=== PATIENT | female | born 1980 | race Caucasian/White ===

== ENCOUNTER 2023-05-13 13:51 | Outpatient (CLI) | payer OTHER, SELFPAY ==
--- NOTE | 2023-05-13 13:40 | MM_ITS ---
Final Report Patient: SREEKANTH FIGUEREDO Facility:?[facility] Patient ID:?[id number] Site Patient ID:?[id number]. Site :?1980 Study:?XRay Breast Bilateral 3D W/CAD-05/13/2023 4:28:10 PM Ordering Physician:Taina Final Report: BILATERAL DIGITAL TOMOSYNTHESIS SCREENING MAMMOGRAM WITH COMPUTER-AIDED DETECTION CLINICAL HISTORY: Routine screening exam. COMPARISON: None TECHNIQUE: Digital tomosynthesis mammogram in CC and MLO projections including computer- aided detection (CAD). Bilateral Eckland views. BREAST COMPOSITION: Heterogeneously dense FINDINGS: RIGHT Breast: Normal breast tissue. No masses or achritectural distortion. No suspicious calcifications or adenopathy. Implants intact. LEFT Breast: Normal breast tissue. No masses or achritectural distortion. No suspicious calcifications or adenopathy. Implants intact. IMPRESSION: No suspicious findings. RECOMMENDATIONS: Annual bilateral screening mammography. BI-RADS category 2. Benign. Dictated by Rubio Arriaza MD @ 05/15/2023 9:32:36 AM (Electronic Signature)
--- OUTSIDE RECORDS SUMMARY | 2023-05-13 14:10 | XMS_ITS | Encounter Summary ---
Author Name Unknown Organization [employer] Address [address] [place] [address] Care Team Providers Care Model And Dye Person Name Role Phone Austin Bill MD Primary Care Provider Maynor Cat MD Unavailable [phone] [facility] Encounter Details Date Type Department Care Team (Late st Contact Info) Description 12/17/2021 [facility] [address] [place] [id number] Maynor Cat MD [address] [place] [address] 100 [address] [place] [address] Urgency-frequency syndrome (Primary Dx) Social History Tobacco Use Types Packs/Day Years Used Date Smoking Tobacco: Never Smokeless Tobacco: Never Alcohol Use Standard Drinks/Week Comments Yes 0 (1 standard drink = 0.6 oz pur e alcohol) Occasionally PHQ-2 Answer Date Recorded PHQ-2 Score 0 11/25/2021 Sex and Gender Information Value Date Recorded Sex Assigned at Female 11/08/2020 11:42 AM CDT Gender Identity Female 11/08/2020 11:42 AM CDT Sexual Orientation Straight 11/08/2020 11 :42 AM CDT COVID-19 Exposure Response Date Recorded In the last 10 days, have gerardo acosta been in contact with someone who was confirmed or suspected to have Coronavirus/COVID-19? No / Unsure 11/25/2021 1:32 PM CDT documented as of this encounter Miscellaneous Notes * Telephone Encounter - Maynor Cat MD - 12/17/2021 8:11 PM CDT Please advise the patient that I sent a prescription for Vesicare 10 [facility] [place]. The patient expressed concerns about the high cost of Myrbetriq. There michael Boardman website [email or web address] but oftentimes is considerably less expensive and may [place] option for her to consider. I did discuss that with her at the time of her recent visit on 11/25/2021. He may want to discuss that with her again. I do not would like to proceed with the plan that I outlined in 11/25/2021. Please let me know if there is questions. Thank you for your help with thisnice patient * Telephone Encounter - Marylou Licona RN - 12/17/2021 10:41 AM CDT Please address the my chart message. Last ov 11/25/21. Pt was rx'd Myrbetriq. Fabiana Licona RN . documented in this encounter Plan of Treatment Not on file documented as of this encounter Visit Diagnoses Diagnosis Urgency-frequency syndrome- Primary Hypertonicity of bladder documented in this encounter Additional Health Concerns Assessment Noted Time PHQ-9 Depression Total Score: 0 11/26/19 1:50 PM CDT documented as of this encounter Care Teams Model And Dye Person Relationship Specialty Start Date End Date Austin Bill MD PCP - General Family Practice 01/18/18 01/26/22 Maynor Cat MD [address] [place] [address] [address] [place] [address] Assigned OBGYN Provider 11/30/21 [facility] [address] [place] [address] Assigned PCP 04/23/23 documented as of this encounter
--- OUTSIDE RECORDS SUMMARY | 2023-05-13 14:10 | XMS_ITS | Referral Summary ---
Author Name Unknown Organization [place] Address [address] [place] [address] Care Team Providers Care Medical Resident Name Role Phone Maynor Cat MD Unavailable [phone] [facility] Unavail[facility] e Allergies Active Allergy Reactions Criticality Noted Date Comments Ondansetron Anaphylaxis High 03/08/2011 Medications Medication Sig Dispensed Refills Start Date End Date Status minocycline (MINOCIN) 100 MG capsule 100 mg 0 10/17/2019 Active metroNIDAZOLE (METROCREAM) 0.75 % external cream 0 11/24/2019 Active LORazepam (ATIVAN) 0.5 MG tabletIndications: Panic attack TAKE 1 TABLET BY MOUTH EVERY 8 HOURS NEEDED FOR ANXIETY 15 tablet 0 08/01/2020 Active FLUoxetine (PROZAC) 20 MG capsuleIndications :Moderate episode of recurrent major depressive disorder (H),Anxiety TAKE 3 CAPSULES(60 MG) BY MOUTH DAILY 270 capsule 0 08/07/2021 Active rOPINIRole (REQUIP) 0.25 MG tabletIndications: Restless leg syndrome TAKE 1 TO 2 TABLETS(0.25 TO 0.5 MG) BY MOUTH AT BEDTIME 180 tablet 0 08/07/2021 Active traZODone (DESYREL) 50 MG tabletIndications: Moderate episode of recurrent major depressive disorder (H) TAKE 1 TABLET BY MOUTH EVERY NIGHT AT BEDTIME NEEDED 90 tablet 0 08/07/2021 Active mirabegron (MYRBETRIQ) 50 MG 24 hr tabletIndications: Urgency-frequency syndrome Take 1 tablet (50 mg) by mouth daily 60 tablet 1 11/25/2021 Active Additional Information Patient not taking.Reported on 12/24/2021 solifenacin (VESICARE) 10 MG tabletIndications: Urgency-frequency syndrome TAKE 1 TABLET(10 MG) BY MOUTH DAILY 45 tablet 0 03/03/2022 Active Active Problems Problem Noted Date Diagnosed Date Restless leg syndrome 08/14/2021 Urge incontinence of urine 10/21/2018 Urgency-frequency syndrome 10/21/2018 Nocturnal enuresis 10/21/2018 Moderate episode of recurrent major depressive d isorder 09/15/2016 Anxiety 09/15/2016 Resolved Problems Problem Noted Date Diagnosed Date Resolved Date premature rupture of membranes (PPROM) delivered, current hospitalization 07/27/2016 02/26/2017 Encounter for triage in patient 07/26/2016 09/15/2016 Indication for care in labor or delivery 07/26/2016 09/15/2016 Immunizations Name Administration Dates Next Due COVID-19 MONOVALENT 12+ (Pfizer) 03/11/2021,05/0 09/2020,07/13/2020 HEPA 12/04/2004 Influenza (IIV3) PF 03/17/2011 Influenza Vaccine >6 months,quad, PF 12/25/2020, 12/28/2017,02/12/2009 Influenza Vaccine, 6+MO IM ( QUADRIVALENT W/PRESERVATIVES) 04/14/2019,03/17/2016 Influenza,INJ,MDCK,PF,Quad >6mo(Flucelvax) 04/14 TDAP Vaccine (Adacel) 06/30/2016 Typhoid IM 12/04/2004 Social History Tobacco Use Types Packs/Day Years Used Date Smoking Tobacco: Never Smokeless Tobacco: Never Tobacco Cessation:Counseling Given: No Alcohol Use Standard Drinks/Week Comments Yes 0 (1 standard drink = 0.6 oz pur e alcohol) Occasionally PHQ-2 Answer Date Recorded PHQ-2 Score 0 11/25/2021 Adolescent Education Answer Date Record ed Getting School Help Needed Not on file 01/13 Sex and Gender Information Value Date Recorded Sex Assigned at Female 11/08/2020 11:42 AM CDT Gender Identity Female 11/08/2020 11:42 AM CDT Sexual Orientation Straight 11/08/2020 11 :42 AM CDT Last Filed Vital Signs Vital Sign Reading Time Taken Comments Blood Pressure 118/86 12/24/2021 1:36 PM CDT Pulse 69 04/21/2019 10:40 AM COMMERCIAL SHEET METAL FOREMAN Temperature 36.7 ??C (98 ??F) 04/21/2019 10:40 AM COMMERCIAL SHEET METAL FOREMAN Respiratory Rate 16 04/21/2019 10:40 AM COMMERCIAL SHEET METAL FOREMAN Oxygen Saturation 98% 04/21/2019 10:40 AM COMMERCIAL SHEET METAL FOREMAN Inhaled Oxygen Concentration - - Weight 69.4 kg (153 lb 1.6 oz) 12/24/2021 1:36 P M CDT Height 162.6 cm (5' 4) 04/21/2019 10:40 AM COMMERCIAL SHEET METAL FOREMAN Body Mass Index 26.28 04/21/2019 10:40 AM COMMERCIAL SHEET METAL FOREMAN Plan of Treatment Not on file Medical Devices Implanted Type Area Second Butler Device Identifier Shelf Expiration Date Model / Serial / Lot Lead Interstim Kit 3889-28 Implanted:Qty: 1 on 12/07/2018 by Maynor Cat MD at [facility] Leads Right: Sacrum [employer] 3057 / [id number] / Lead Interstim Kit 3889-28 Implanted:Qty: 1 on 12/17/2018 by Maynor Cat MD at [facility] Leads Left: Sacrum [employer] 11/09/2022 3889-28 / / [id number] Stimulator Neuro Inter-Stim Ii 3058 Implanted:Qty: 1 on 12/17/2018 by Maynor Cat MD at [facility] Neurology device Left: Sacrum [employer] 04/26/2020 3058 / [id number] H / Lead Implanted:Qty: 1 on 12/07/2018 by Maynor Cat MD at [facility] N/A: Sacrum 3057 / / Care Teams Medical Resident Relationship Specialty Start Date End Date Maynor Cat MD [address] [place] [address] [address] [place] [address] Assigned OBGYN Provider 11/30/21 [facility] [address] [place] [address] Assigned PCP 04/23/23
--- OUTSIDE RECORDS SUMMARY | 2023-05-13 14:10 | XMS_ITS | Encounter Summary ---
Author Name Unknown Organization [employer] Address [address] [place] [address] Care Team Providers Care Wood Web Weaving Machine Operator Name Role Phone Lydia Marcos MD Primary Care Provider + Austin Bill MD Primary Care Provider [phone] Austin Bill MD Unavailable [phone] Austin Bill MD Unavailable [phone] [place] [place] Unavailable Unavailable Maynor Cat MD Unavailable [phone] Maynor Cat MD Unavailable [phone] [facility] e Encounter Details Date Type Department Care Team (Latest Contact Info) Description 09/15/2016 Historic Results Social History Tobacco Use Types Packs/Day Years Used Date Smoking Tobacco: Never Smokeless Tobacco: Never Alcohol Use Standard Drinks/Week Comments No 0 (1 standard drink = 0.6 oz pur e alcohol) Sex and Gender Information Value Date Recorded Sex Assigned at Female 11/08/2020 11:42 AM CDT Gender Identity Female 11/08/2020 11:42 AM CDT Sexual Orientation Straight 11/08/2020 11 :42 AM CDT documented as of this encounter Plan of Treatment Not on file documented as of this encounter Visit Diagnoses Not on filedocumented in this encounter Additional Health Concerns Assessment Noted Time PHQ-9 Depression Total Score: 10 017 7:28 AM CDT documented as of this encounter Care Teams Wood Web Weaving Machine Operator Relationship Specialty Start Date End Date Lydia Marcos MD PCP - General visual merchandise manager 07/26/16 01/17/18 Austin Bill MD PCP - General Family Practice 01/18/18 01/26/22 [place] [address] [place] [address] PCP - Assigned PCP 08/29/16 06/01/18 [place] [address] [place] [address] Assigned PCP 08/29/16 12/13/21 [facility] Personal Advocate & Liaison (PAL) Family Practice 01/11/20 01/22/20 Maynor Cat MD [address] [facility] [address] [place] [address] Assigned OBGYN Provider 01/20/20 2 Maynor Cat MD [address] [facility] [address] [place] [address] Assigned OBGYN Provider 11/30/21 [facility] [address] [place] [address] Assigned PCP 04/23/23 documented as of this encounter
--- OUTSIDE RECORDS SUMMARY | 2023-05-13 14:10 | XMS_ITS | Encounter Summary ---
Author Name Unknown Organization [place] Address [address] [place] [address] Care Team Providers Care Men'S Basketball Coach Name Role Phone Austin Bill MD Primary Care Provider [phone] Austin Bill MD Unavailable [phone] Maynor Cat MD Unavailable [phone] Clinic - [facility] Unavail[facility] e Encounter Details Date Type Department Care Team (Late st Contact Info) Description 07/19/2021 [facility] [address] [place] [phone] Madison Harris, RASCHEL KNITTING MACHINE OPERATOR Social History Tobacco Use Types Packs/Day Years Used Date Smoking Tobacco: Never Smokeless Tobacco: Never Alcohol Use Standard Drinks/Week Comments Yes 0 (1 standard drink = 0.6 oz pur e alcohol) Occasionally PHQ-2 Answer Date Recorded PHQ-2 Score 0 08/01/2020 Sex and Gender Information Value Date Recorded [...] Noted Time PHQ-9 Depression Total Score: 0 08/02/19 21 1:51 PM CDT documented as of this encounter Care Teams Men'S Basketball Coach Relationship Specialty Start Date End Date Austin Bill MD PCP - General Family Practice 01/18/18 01/26/22 [place] [address] [place] [address] Assigned PCP 08/29/16 12/13/21 Maynor Cat MD [address] [facility] [address] [place] [address] Assigned OBGYN Provider 11/30/21 [facility] [address] [place] [address] Assigned PCP 04/23/23 documented as of this encounter
--- OUTSIDE RECORDS SUMMARY | 2023-05-13 14:10 | XMS_ITS | Encounter Summary ---
Author Name Unknown Organization [place] Address [facility] [place] [address] Care Team Providers Care Toll Collector Supervisor Name Role Phone Austin Bill MD Primary Care Provider [phone] Austin Bill MD Unavailable [phone] Maynor Cat MD Unavailable [phone] [facility] - [facility] Unavailabl e Encounter Details Date Type Department Care Team (Late st Contact Info) Description 08/06/2021 [facility] [id number] [place] [phone] Migdalia Jolley MA Social History Tobacco Use Types Packs/Day Years [...] Recorded In the last 10 days, have yo u been in contact with someone who was confirmed or suspected to have Coronavirus/COVID-19? No / Unsure 08/07/2021 10:25 AM CDT documented as of this encounter Plan of Treatment Not on file documented as of this encounter Visit Diagnoses Not on filedocumented in this encounter Additional Health Concerns Assessment Noted Time PHQ-9 Depression Total Score: 0 08/02/19 21 1:51 PM CDT documented as of this encounter Care Teams Toll Collector Supervisor Relationship Specialty Start Date End Date Austin Bill MD PCP - General Family Practice 01/18/18 01/26/22 [place] [address] [facility] [place] [address] Assigned PCP 08/29/16 12/13/21 Maynor Cat MD [address] [place] [address] [address] [place] [address] Assigned OBGYN Provider 11/30/21 [facility] [address] [place] [address] Assigned PCP 04/23/23 documented as of this encounter
--- OUTSIDE RECORDS SUMMARY | 2023-05-13 14:10 | XMS_ITS | Encounter Summary ---
Author Name Unknown Organization [place] Address [address] [place] [address] Care Team Providers Care Construction Tech Name Role Phone Austin Bill MD Primary Care Provider [phone] Austin Bill MD Unavailable [phone] [place] [place] Unavailable Unavailable Maynor Cat MD Unavailable [phone] Maynor Cat MD Unavailable [phone] [facility] Unavailabl e Encounter Details Date Type Department Care Team (Late st Contact Info) Description 11/29/2019 [facility] [address] [place] [phone] Belkis Vidales Social History Tobacco Use Types Packs/Day Years Used Date Smoking Tobacco: Never Smokeless Tobacco: Never Alcohol Use Standard Drinks/Week Comments Yes 0 (1 standard drink = 0.6 oz pur e alcohol) Occasionally PHQ-2 Answer Date Recorded PHQ-2 Score 0 03/17/2019 Sex and Gender Information Value Date Recorded Sex Assigned at Female 11/08/2020 11:42 AM CDT Gender Identity Female 11/08/2020 11:42 AM CDT Sexual Orientation Straight 11/08/2020 11 :42 AM CDT COVID-19 Exposure Response Date Recorded In the last month, have you been in contact with someone who was confirmed or suspected to have Coronavirus / COVID-19? No / Unsure 11/25/2019 8:44 AM CDT documented as of this encounter Plan of Treatment Not on file documented as of this encounter Visit Diagnoses Not on filedocumented in this encounter Additional Health Concerns Assessment Noted Time PHQ-9 Depression Total Score: 1 04/21/19 20 11:19 AM APPEALS ANALYST documented as of this encounter Care Teams Construction Tech Relationship Specialty Start Date End Date Austin Bill MD PCP - General Family Practice 01/18/18 01/26/22 [place] [address] [facility] [place] [address] Assigned PCP 08/29/16 12/13/21 [facility] Personal Advocate & Liaison (PAL) [facility] Practice 01/11/20 01/22/20 Maynor Cat MD 303 [facility] [address] [place] [address] Assigned OBGYN Provider 01/20/20 2 Maynor Cat MD [address] [facility] [address] [place] [address] Assigned OBGYN Provider 11/30/21 [facility] [address] [place] [address] Assigned PCP 04/23/23 documented as of this encounter
--- OUTSIDE RECORDS SUMMARY | 2023-05-13 14:10 | XMS_ITS | Encounter Summary ---
Author Name Unknown Organization [place] Address [facility] [place] [address] Care Team Providers Care Thread Dresser Name Role Phone Austin Bill MD Primary Care Provider [phone] Austin Bill MD Unavailable [phone] Maynor Cat MD Unavailable [phone] Maynor Cat MD Unavailable [phone] [facility] Unavailabl e Encounter Details Date Type Department Care Team (Late st Contact Info) Description 11/08/2020 [facility] Medical Advice [facility] [address] [place] [phone] [place] [address] [place], [place] [id number] Social History Tobacco Use Types Packs/Day Years [...] documented as of this encounter Care Teams Thread Dresser Relationship Specialty Start Date End Date Austin Bill MD PCP - General Family Practice 01/18/18 01/26/22 [place] [address] [place] [address] Assigned PCP 08/29/16 12/13/21 Maynor Cat MD [address] [facility] [address] [place] [address] Assigned OBGYN Provider 01/20/20 2 Maynor Cat MD [address] [facility] [address] [place] [address] Assigned OBGYN Provider 11/30/21 [facility] [address] [place] [address] Assigned PCP 04/23/23 documented as of this encounter
--- OUTSIDE RECORDS SUMMARY | 2023-05-13 14:10 | XMS_ITS | Encounter Summary ---
Author Name Unknown Organization [place] Address [address] [place] [address] Care Team Providers Care Drying Room Attendant Name Role Phone Austin Bill MD Primary Care Provider [phone] Austin Bill MD Unavailable [phone] [place] Unavailable Unavailable Maynor Cat MD Unavailable [phone] Maynor Cat MD Unavailable [phone] [facility] Unavailabl e Encounter Details Date Type Department Care Team (Late st Contact Info) Description 02/15/2019 [facility] [address] [place] [phone] [place] [address] [place], [place] [address] Social History Tobacco Use Types Packs/Day Years Used Date Smoking Tobacco: Never Smokeless Tobacco: Never Alcohol Use Standard Drinks/Week Comments Yes 0 (1 standard drink = 0.6 oz pur e alcohol) Occasionally Sex and Gender Information Value Date Recorded [...] Noted Time PHQ-9 Depression Total Score: 0 04/22/19 19 1:45 PM CUT OFF SAW OPERATOR PIPE BLANKS documented as of this encounter Care Teams Drying Room Attendant Relationship Specialty Start Date End Date Austin Bill MD PCP - General Family Practice 01/18/18 01/26/22 [place] [address] [place] [address] Assigned PCP 08/29/16 12/13/21 [place] [place] Personal Advocate & Liaison (PAL) Family Practice 01/11/20 01/22/20 Maynor Cat MD [address] [facility] [address] [place] [address] Assigned OBGYN Provider 01/20/20 2 Maynor Cat MD [address] [facility] [address] [place] [address] Assigned OBGYN Provider 11/30/21 [facility] [address] [place] [address] Assigned PCP 04/23/23 documented as of this encounter
--- OUTSIDE RECORDS SUMMARY | 2023-05-13 14:10 | XMS_ITS | Clinical Summary ---
Author Name Unknown Organization [place] Address [address] [place] [address] Care Team Providers Care Print Buyer Name Role Phone Maynor Cat MD Unavailable [phone] [facility] Unavailabl e Allergies Active Allergy Reactions Criticality [...] TDAP Vaccine (Adacel) 06/30/2016 Typhoid IM 12/04/2004 Family History Medical History Relation Comments Macular Degeneration Father Anxiety Disorder Mother Atrial fibrillation Mother Hypotension Mother Breast Cancer Paternal Grandmother Relation Status Comments Father Alive Mother Alive Paternal Grandmother Social History Tobacco Use Types Packs/Day Years Used Date Smoking Tobacco: Never Smokeless Tobacco: Never Tobacco Cessation:Counseling Given: No Alcohol Use Standard Drinks/Week Comments Yes 0 (1 standard drink = 0.6 oz pur e alcohol) Occasionally PHQ-2 Answer Date Recorded PHQ-2 Score 0 11/25/2021 Adolescent Education Answer Date Record ed Getting School Help Needed Not on file 10/17 /2023 Sex and Gender Information Value Date Recorded Sex Assigned at Female 11/08/2020 11:42 AM CDT Gender Identity Female 11/08/2020 11:42 AM CDT Sexual Orientation Straight 11/08/2020 11 :42 AM CDT Last Filed Vital Signs Vital Sign Reading Time Taken Comments Blood Pressure 118/86 12/24/2021 1:36 PM CDT Pulse 69 04/21/2019 10:40 AM COAT CUTTER Temperature 36.7 ??C (98 ??F) 04/21/2019 10:40 AM COAT CUTTER Respiratory Rate 16 04/21/2019 10:40 AM COAT CUTTER Oxygen Saturation 98% 04/21/2019 10:40 AM COAT CUTTER Inhaled Oxygen Concentration - - Weight 69.4 kg (153 lb 1.6 oz) 12/24/2021 1:36 P M CDT Height 162.6 cm (5' 4) 04/21/2019 10:40 AM COAT CUTTER Body Mass Index 26.28 04/21/2019 10:40 AM COAT CUTTER Plan of Treatment Health Maintenance Due Date Last Done Comments ADVANCE CARE PLANNING 1980 ANNUAL REVIEW OF HM ORDERS 1980 DEPRESSION ACTION PLAN 1980 GLUCOSE 1980 HEPATITIS B IMMUNIZATION (1 of 3 - 3-dose series) 1980 LIPID 2020 YEARLY PREVENTIVE VISIT 05/02/2020 05/02/2019 PAP 05/02/2022 05/02/2019, 05/2019, 05/02/2019, Additional history exists PHQ-9 05/27/2022 11/25/2021, 050 07/2020, 04/21/2019, Additional history exists COVID-19 Vaccine ( season) 2022 03/11/2021, 08/03/2020, 07/13/2020 INFLUENZA VACCINE (#1) 2022 , 04/14/2019, 04/14/2019, Additional history exists MAMMO SCREENING 12/31/2023 12/30/2021, 11/19/2020 DTAP/TDAP/TD IMMUNIZATION (2 - Td or Tdap) 06/30/2026 06/30/2016 HIV SCREENING Completed 01/29/2016, 08/30/2010 HEPATITIS C SCREENING Discontinued HPV IMMUNIZATION Aged Out No longer e ligible based on patient's age to complete this topic IPV IMMUNIZATION Aged Out No longer e ligible based on patient's age to complete this topic MENINGITIS IMMUNIZATION Aged Out No l onger eligible based on patient's age to complete this topic Pneumococcal Vaccine: Pediatrics (0 to 5 Years) and At-Risk Patients (6 to 64 Years) Aged Out No longer eligible based on patient's age to complete this topic RSV MONOCLONAL ANTIBODY Aged Out No l onger eligible based on patient's age to complete this topic Medical Devices Implanted Type Area Precision Lens Technician Device Identifier Shelf Expiration Date Model / Serial / Lot Lead Interstim Kit 3889-28 Implanted:Qty: 1 on 12/07/2018 by Maynor Cat MD at [facility] Leads Right: Sacrum [employer] 3057 / [id number] / Lead Interstim Kit [id number] Implanted:Qty: 1 on 12/17/2018 by Maynor Cat MD at [facility] Leads Left: Sacrum [employer] 11/09/2022 3889-28 / / [id number] Stimulator Neuro Inter-Stim Ii 3058 Implanted:Qty: 1 on 12/17/2018 by Maynor Cat MD at [facility] Neurology device Left: Sacrum [employer] 04/26/2020 3058 / [id number] / Lead Implanted:Qty: 1 on 12/07/2018 by Maynor Cat MD at [facility] N/A: Sacrum 3057 / / Care Teams Print Buyer Relationship Specialty Start Date End Date Maynor Cat MD [address] [place] [address] [address] [place] [address] Assigned OBGYN Provider 11/30/21 [facility] [address] [place] [address] Assigned PCP 04/23/23
--- OUTSIDE RECORDS SUMMARY | 2023-05-13 14:10 | XMS_ITS | Encounter Summary ---
Author Name Unknown Organization [place] Address [address] [place] [address] Care Team Providers Care Green Belt Name Role Phone Austin Bill MD Primary Care Provider [phone] Austin Bill MD Unavailable [phone] Maynor Cat MD Unavailable [phone] Clinic - [facility] Unavailabl e Encounter Details Date Type Department Care Team (Late st Contact Info) Description 11/07/2021 MyC Medical Advice [facility] [address] [place] [phone] Migdalia Jolley MA Social History Tobacco [...] documented as of this encounter Care Teams Green Belt Relationship Specialty Start Date End Date Austin Bill MD PCP - General Family Practice 01/18/18 01/26/22 [place] [address] [facility] [place] [address] Assigned PCP 08/29/16 12/13/21 Maynor Cat MD [address] [facility] [address] [place] [address] Assigned OBGYN Provider 11/30/21 [facility] [address] [place] [address] Assigned PCP 04/23/23 documented as of this encounter
--- OUTSIDE RECORDS SUMMARY | 2023-05-13 14:11 | XMS_ITS | Encounter Summary ---
Author Name Unknown Organization [place] Address [address] [place] [address] Care Team Providers Care Justice Court Judge Name Role Phone HemantLydia MD Primary Care Provider + Austin Bill MD Primary Care Provider [phone] Austin Bill MD Unavailable [phone] Austin Bill MD Unavailable [phone] Nba Woods Unavailable Unavailable Maynor Cat MD Unavailable [phone] Maynor Cat MD Unavailable [phone] Clinic - [facility] Unavailabl e Encounter Details Date Type Department Care Team (Late st Contact Info) Description 07/29/2016 [facility] [address] [place] [phone] Maynor Cat MD [address] [place] [address] [address] [place] [address] Social History Tobacco Use Types Packs/Day Years [...] Diagnoses Not on filedocumented in this encounter Care Teams Justice Court Judge Relationship Specialty Start Date End Date Lydia Marcos MD PCP - General supervisor dry paste 07/26/16 01/17/18 Austin Bill MD PCP - General Family Practice 01/18/18 01/26/22 [place] [address] [place] [address] PCP - Assigned PCP 08/29/16 06/01/18 [place] [address] [place] [address] Assigned PCP 08/29/16 12/13/21 Nba Woods Personal Advocate & Liaison (PAL) Family Practice 01/11/20 01/22/20 Maynor Cat MD [address] [place] [address] [address] [place] [address] Assigned OBGYN Provider 01/20/20 2 Maynor Cat MD 303 [facility] [address] [place] [address] Assigned OBGYN Provider 11/30/21 [facility] [address] [place] [address] Assigned PCP 04/23/23 documented as of this encounter
== END 2023-05-13 13:52 | disposition home or self-care (01) ==
LOC: MAMMO 13:53
PROVIDERS: PCP Family Medicine; Visit Provider Family Medicine
DX: Z12.31 Encounter for screening mammogram for malignant neoplasm of breast (principal); R92.2 Inconclusive mammogram
CPT/HCPCS: 77063; 77067

== ENCOUNTER 2024-03-29 16:53 | Emergency (ER) | payer OTHER, SELFPAY ==
--- OUTSIDE RECORDS SUMMARY | 2024-03-29 16:55 | XMS_ITS | Clinical Summary ---
Author Organization [facility] Address [place], [place] [address] Care Team Providers Care Sausage Wrapper Name Role Phone Shelbi Braun Primary Care Provider Allergies Active Allergy Reactions Criticality Noted Date Comments Ondansetron Throat Swelling/Closing High 12/11/2023 Medications traZODone (DESYREL) 50 mg tablet Take 1 Tablet (50 mg) by mouth at bedtime. 4 Active LORazepam (ATIVAN) 0.5 mg tab Take 1 Tablet (0.5 mg) by mouth every 6 hours if needed for Anxiety. 4 Active thyroid (DIRECTOR MARKETING Thyroid) 60 mg tablet Take 1 Tablet (60 mg) by mouth once daily. 4 Active vibegron (GEMTESA) 75 mg tabletIndicatio ns:OAB (overactive bladder) Take 1 Tablet (75 mg) by mouth once daily. 90 Tablet 1 4 Active fluvoxaMINE (LUVOX CR) 100 mg Extended-Releas e capsuleIndicati ons:Anxiety Take 1 Capsule (100 mg) by mouth once daily. 30 Capsule 1 4 Active fluvoxaMINE (LUVOX) 50 mg tabletIndicatio ns:Anxiety Take 1 Tablet (50 mg) by mouth once daily. 90 Tablet 1 4 03/02/20 24 Discontinu ed(*Medica tion adjustment ) Encounters Date Type Department Care Team Description 01/18/2024 1:00 PM CDT Office Visit [facility] [address] [place] [address] Shelbi Braun PA Medication Management (Fluoxamine - going well) 01/18/2024 Travel from Last 3 Months Family History Medical History Relation Name Comments Good Health Brother 1 Good Health Brother 2 Good Health Brother 3 Macular degeneration Father Atrial fibrillation Mother Good Health Sister 1 Good Health Sister 2 Relation Name Status Comments Brother 1 Alive Brother 2 Alive Brother 3 Alive Father Alive Mother Alive Sister 1 Alive Sister 2 Alive Social History Tobacco Use Types Packs/Day Years Used Date Smoking Tobacco: Former Cigarettes Tobacco Cessation:Counseling Given: Not Answered [facility] Utilities Answer Date Recorded Do you have trouble paying f or utilities (for example, heat, electricity, water, phone)? Yes 12/11/2023 PHQ-2 Answer Date Recorded PHQ-2 TOTAL SCORE 3 2024 Social Connections Answer Date Recorded Do you often feel lonely or isolated from those around you? 0 12/11/2023 Financial Resource Strain Answer Date R ecorded Difficulty of Paying Living Expenses 3 12/11/2023 Difficulty of Paying Living Expenses Not on file 12/11/2023 Food Insecurity Answer Date Recorded Do you worry your food will run out before you are able to buy more? 1 12/11/2023 Transportation Needs Answer Date Record ed Does lack of transportation keep you from medica l appointments? 1 12/11/2023 Does lack of transportation keep you from work, meetings or getting things that you need? 1 12/11/2023 Housing Stability Answer Date Recorded What is your housing situation today? 1 12/11/2023 Comments Unknown Sex and Gender Information Value Date Recorded Sex Assigned at Not on file Legal Sex Female 4:34 PM LABORATORY TECHNICIAN Gender Identity Not on file Sexual Orientation Not on file Obstetrics History Last Filed Vital Signs Vital Sign Reading Time Taken Comments Blood Pressure 95/60 01/18/2024 1:09 PM CDT Pulse 67 01/18/2024 1:09 PM CDT Temperature - - Respiratory Rate - - Oxygen Saturation - - Inhaled Oxygen Concentration - - Weight 64 kg (141 lb) 01/18/2024 1:09 PM CDT Height - - Body Mass Index - - Plan of Treatment Upcoming Encounters Date Type Department Care Team (Late st Contact Info) Description 04/11/2024 1:00 PM LABORATORY TECHNICIAN Ancillary Procedure [facility] [address] [place] [address] Health Maintenance Due Date Last Done Comments Tdap 02/28/1991 HIV for age 15-65 02/28/1995 BMI (ht and wt on same day) for age 18+ 02/28/1998 Hepatitis C screening for ag e 18-79 02/28/1998 Tetanus booster 2000 COVID-19 vaccine series ( season) 2023 03/11/2021, 08/03/2020, 07/13/2020 Influenza for age 9-49 11/29/2023 Pap test for age 21-65 05/02/2024 , 05/02/2019 Depression screening for age 12+ 04/11/2025 04/11/2024, 2024, 02/22/2024 Pneumococcal series for age 6-49 Aged Out No longer eligible b ased on patient's age to complete this topic Procedures Procedure Name Priority Date/Time Associated Diagnosis Comments PILL PACKER THIN PREP PAP SCREEN IMAGED Routine 05/02/2019 12:00 PM LABORATORY TECHNICIAN from Last 3 Months or Most Recently Relevant to Health Maintenance Results * PILL PACKER THIN PREP PAP SCREEN IMAGED (05/02/2019 12:00 PM LABORATORY TECHNICIAN) Case Report Gynecologic Cytology Report Case: [id number] Authorizing Provider: Kerri Luna MD Collected: 05/02/2019 1200 Ordering Location: [facility] Received: 05/03/2019 0926 First Screen: Cosme Agarwal Pathologist: Deb Rose DO Specimen: PILL PACKER ThinPrep Vial Screening, Cervical/Vaginal 05/12/2019 10:34 AM LABORATORY TECHNICIAN [facility] LABORAT[facility]-C ENTRAL LABORATORY INTERPRETATION/ RESULT NEGATIVE FOR INTRAEPITHELIAL LESION OR MALIGNANCY (NIL) (none) 05/12/2019 10:34 AM LABORATORY TECHNICIAN [facility] LABORATORY-C ENTRAL LABORATORY R NON-NEOPLASTIC FINDING(S) Reactive cellular changes associated with inflammation/repa ir 05/12/2019 10:34 AM LABORATORY TECHNICIAN [facility] LABORAT[facility]-C ENTRAL LABORATORY SPECIMEN ADEQUACY Satisfactory for evaluation Endocervical component present 05/12/2019 10:34 AM [facility] HPV REQUEST HPV and PAP 05/12/2019 10:34 AM [facility] Date of LMP 04/23/2019 05/12/2019 10:34 AM [facility] Additional Information 05/12/2019 10:34 AM [facility] Comment: Interpreted at [facility] - [address], [place] [address] Automated Review Successful 05/12/2019 10:34 AM [facility] Comment:Specimen processed s uccessfully by automated circulation analyst device, Apollo EndosurgeryPrep Imaging System, [employer] ANCILLARY TESTING PILL PACKER HPV Ordered, Please see separate report 05/12/2019 10:34 AM [facility] Note The pap test is a screening technique, not a diagnostic procedure. It is used primarily to screen for squamous cancers and precursor lesions. Published studies have shown that it is subject to both false negative and false positive results. The pap test should not be used as the sole means to diagnose or exclude pre-malignant and malignant lesions. 05/12/2019 10:34 AM [facility] Other (Cervical/Vagina l) 05/02/2019 12:00 PM LABORATORY TECHNICIAN 05/03/2019 9:26 AM LABORATORY TECHNICIAN Kerri Luna MD PATHOLOGY/CYTOLOGY Final Result [facility] [address] [place] [address], from Last 3 Months or Most Recently Relevant to Health Maintenance Insurance [facility] INDIVIDUAL AND FAMILY PLANS Care Teams Sausage Wrapper Relationship Specialty Start Date End Date Shelbi Braun PA [address] [place] [address] PCP - General Physician Oilseed Meat Presser 01/18/24
--- OUTSIDE RECORDS SUMMARY | 2024-03-29 16:55 | XMS_ITS | Clinical Summary ---
Author Organization [place] Address [address] [place] [address] Care Team Providers Care Supervisor Bridges And Buildings Name Role Phone Unavailable Primary Care Provider Unavailabl e Allergies Active Allergy Reactions Criticality Noted Date Comments Ondansetron Anaphylaxis High 03/08/2011 Medications minocycline (MINOCIN) 100 MG capsule 100 mg 0 Active metroNIDAZOLE (METROCREAM) 0.75 % external cream 0 Active LORazepam (ATIVAN) 0.5 MG tabletIndicatio ns:Panic attack TAKE 1 TABLET BY MOUTH EVERY 8 HOURS NEEDED FOR ANXIETY 15 tablet 1 Active FLUoxetine (PROZAC) 20 MG capsuleIndicati ons:Moderate episode of recurrent major depressive disorder (H),Anxiety TAKE 3 CAPSULES(60 MG) BY MOUTH DAILY 270 capsule 2 Active rOPINIRole (REQUIP) 0.25 MG tabletIndicatio ns:Restless leg syndrome TAKE 1 TO 2 TABLETS(0.25 TO 0.5 MG) BY MOUTH AT BEDTIME 180 tablet 2 Active traZODone (DESYREL) 50 MG tabletIndicatio ns:Moderate episode of recurrent major depressive disorder (H) TAKE 1 TABLET BY MOUTH EVERY NIGHT AT BEDTIME NEEDED 90 tablet 2 Active mirabegron (MYRBETRIQ) 50 MG 24 hr tabletIndicatio ns:Urgency-freq uency syndrome Take 1 tablet (50 mg) by mouth daily 60 tablet 1 2 Active Additional Information Patient not taking.Reported on 12/24/2021 solifenacin (VESICARE) 10 MG tabletIndicatio ns:Urgency-freq uency syndrome TAKE 1 TABLET(10 MG) BY MOUTH DAILY 45 tablet 2 Active Active Problems Problem Noted Date Diagnosed [...] School Help Needed Not on file 01/13 Comments No Sex and Gender Information Value Date Recorded Sex Assigned at Female 11/08/2020 11:42 AM CDT Legal Sex Female 4:45 AM DIALYSIS CHIEF EQUIPMENT TECHNICIAN Gender Identity Female 11/08/2020 11:42 AM CDT Sexual Orientation Straight 11/08/2020 11 :42 AM CDT 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 on file Not on file Not on file Last Filed Vital Signs Vital Sign Reading Time Taken Comments Blood Pressure 118/86 12/24/2021 1:36 PM CDT Pulse 69 04/21/2019 10:40 AM DIALYSIS CHIEF EQUIPMENT TECHNICIAN Temperature 36.7 C (98 F) 04/21/2019 10:40 AM DIALYSIS CHIEF EQUIPMENT TECHNICIAN Respiratory Rate 16 04/21/2019 10:40 AM DIALYSIS CHIEF EQUIPMENT TECHNICIAN Oxygen Saturation 98% 04/21/2019 10:40 AM DIALYSIS CHIEF EQUIPMENT TECHNICIAN Inhaled Oxygen Concentration - - Weight 69.4 kg (153 lb 1.6 oz) 12/24/2021 1:36 P M CDT Height 162.6 cm (5' 4) 04/21/2019 10:40 AM DIALYSIS CHIEF EQUIPMENT TECHNICIAN Body Mass Index 26.28 04/21/2019 10:40 AM DIALYSIS CHIEF EQUIPMENT TECHNICIAN Plan of Treatment Health Maintenance Due Date Last Done Comments ADVANCE CARE PLANNING 1980 ANNUAL REVIEW OF HM ORDERS 1980 DEPRESSION ACTION PLAN 1980 GLUCOSE 1980 HEPATITIS B IMMUNIZATION (1 of 3 - 19+ 3-dose series) 02/28/1999 LIPID 2020 YEARLY PREVENTIVE VISIT 05/02/2020 05/02/2019 PAP 05/02/2022 05/02/2019, 0205/2019, 05/02/2019, Additional history exists PHQ-9 05/27/2022 11/25/2021, 05/0 07/2020, 04/21/2019, Additional history exists COVID-19 Vaccine ( season) 2023 03/11/2021, 08/03/2020, 07/13/2020 INFLUENZA VACCINE (#1) 2023 , 04/14/2019, 04/14/2019, Additional history exists MAMMO SCREENING 12/31/2023 12/30/2021, 11/19/2020 DTAP/TDAP/TD IMMUNIZATION (2 - Td or Tdap) 06/30/2026 06/30/2016 RSV VACCINE (1 - 1-dose 75+ series) 02/28/2055 HIV SCREENING Completed 01/29/2016, 08/30/2010 HEPATITIS C SCREENING Discontinued HPV IMMUNIZATION Aged Out No longer e ligible based on patient's age to complete this topic MENINGITIS IMMUNIZATION Aged Out No l onger eligible based on patient's age to complete this topic Pneumococcal Vaccine: Pediatrics (0 to 5 Years) and At-Risk Patients (6 to 49 Years) Aged Out No longer eligible based on patient's age to complete this topic RSV MONOCLONAL ANTIBODY Aged Out No l onger eligible based on patient's age to complete this topic Medical Devices Implanted Type Area Chiropractor Sole Practitioner Device Identifier Shelf Expiration Date Model / Serial / Lot Lead Interstim Kit 3889-28 Implanted:Qty: 1 on 12/07/2018 by Maynor Cat MD at [facility] Leads Right: Sacrum [employer] 3057 / [id number] / Lead Interstim Kit 3889-28 Implanted:Qty: 1 on 12/17/2018 by Maynor Cat MD at [facility] Leads Left: Sacrum [employer] 11/09/2022 3889-28 / / [id number] Stimulator Neuro Inter-Stim Ii 3058 Implanted:Qty: 1 on 12/17/2018 by Maynor Cat MD at [facility] Neurology device Left: Sacrum [employer] 04/26/2020 3058 / [id number] / Lead Implanted:Qty: 1 on 12/07/2018 by Maynor Cat MD at [facility] N/A: Sacrum 3057 / / Procedures Procedure Name Priority Date/Time Associated Diagnosis Comments MA SCREENING WITH IMPLANTS BILATERAL W/ JADEN Routine 12/30/2021 1:45 PM CDT Encounter for screening mammogram for breast cancer HIV ANTIGEN ANTIBODY COMBO Routine 01/29/2016 PAP SMEAR - HIM PATIENT REPORTED Routine 11/05/2015 PHQ-9 DEPRESSION SCREENING ORDER Routine 09/18/2015 from Last 3 Months or Most Recently Relevant to Health Maintenance Results * MA Screen with Implants Bilateral w/Jaden (12/30/2021 1:45 PM CDT) Anatomical Region Laterality Modality Breast Bilateral Mammography Impressions 01/01/2022 2:59 PM CDT IMPRESSION: ACR BI-RADS Category 1: Negative RECOMMENDED FOLLOW-UP: Annual routine screening mammogram The results and recommendations of this examination will be communicated to the patient. Narrative 01/01/2022 2:59 PM CDT BILATERAL FULL FIELD DIGITAL SCREENING MAMMOGRAM WITH TOMOSYNTHESIS Performed on: 12/30/21 Compared to: 11/19/2020 Technique: This study was evaluated with the assistance of Computer-Aided Detection. Breast Tomosynthesis was used in interpretation. Findings: The breasts are heterogeneously dense, which may obscure small masses. There is no radiographic evidence of malignancy. us Maynor Cat MD IMG MAMMOGRAPHY ORDERABLES Kathie l Result * HIV Antigen Antibody Combo (01/29/2016) HIV Antigen Antibody Combo Negative Blood specimen (specimen) us Patient Reported LAB - BLOOD ORDERABLES Final Re sult * PAP Smear - HIM Patient Reported (11/05/2015) PAP Smear - HIM Patient Reported Negative EXTERNAL LAB 11/05/2015 Narrative EXTERNAL LAB - 11/05/2015 Please abstract the following data from this visit with this patient into the appropriate field in Psychiatric: Pap smear done on this date: 11/05/15 (approximately), by this group: [facility] , results were normal. us Patient Reported LABORATORY Final Result EXTERNAL LAB External Lab * PHQ-9 DEPRESSION SCREENING ORDER (09/18/2015) PHQ9 SCORE 5 Narrative Yasmeen Rubi - 09/18/2015 [facility] CLINICAL NOTES 12/12/2013-03/17/2016 us Provider Outside OTHER Final Result from Last 3 Months or Most Recently Relevant to Health Maintenance Insurance [facility] INDIVIDUAL FAMILY PLANS [facility] INDIVIDUAL FAMILY PLANS
--- OUTSIDE RECORDS SUMMARY | 2024-03-29 16:56 | XMS_ITS | Encounter Summary ---
Author Organization [place] Address [address] [place] [address] Care Team Providers Care Land Development Project Manager Name Role Phone Austin Bill MD Primary Care Provider [phone] Austin Bill MD Unavailable [phone] Maynor Cat MD Unavailable [phone] [facility] Unavailabl e Encounter Details Date Type Department Care Team (Late st Contact Info) Description 07/19/2021 [facility] Medical Advice [facility] [address] [place] [phone] Madison Harris, RAZOR GRINDER Social History Tobacco Use Types Packs/Day Years Used Date Smoking Tobacco: Never Smokeless Tobacco: Never Alcohol Use Standard Drinks/Week Comments Yes 0 (1 standard drink = 0.6 oz pur e alcohol) Occasionally PHQ-2 Answer Date Recorded PHQ-2 Score 0 08/01/2020 Comments No Sex and Gender Information Value Date Recorded Sex Assigned at Female 11/08/2020 11:42 AM CDT Legal Sex Female 4:45 AM OUTDOOR ADVENTURE GUIDES Gender Identity Female 11/08/2020 11:42 AM CDT Sexual Orientation Straight 11/08/2020 11 :42 AM CDT 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 on file Not on file Not on file documented as of this encounter Plan of Treatment Not on file documented as of this encounter Visit Diagnoses Not on filedocumented in this encounter Additional Health Concerns Assessment Noted Time PHQ-9 Depression Total Score: 0 08/02/19 21 1:51 PM CDT documented as of this encounter Care Teams Land Development Project Manager Relationship Specialty Start Date End Date Austin Bill MD PCP - General Family Practice 01/18/18 01/26/22 [place] [address] [facility] [place] [address] Assigned PCP 08/29/16 12/13/21 Maynor Cat MD 303 [facility] [address] [place] [address] Assigned OBGYN Provider 11/30/21 [facility] [address] [place] [address] Assigned PCP 04/23/23 09/19/23 documented as of this encounter
--- OUTSIDE RECORDS SUMMARY | 2024-03-29 16:56 | XMS_ITS | Encounter Summary ---
Author Organization [place] Address [address] [place] [address]. [place] [address] Care Team Providers Care Paper Machine Operator Name Role Phone Austin Bill MD Primary Care Provider [phone] Austin Bill MD Unavailable [phone] Maynor Cat MD Unavailable [phone] Maynor Cat MD Unavailable [phone] [facility] Unavailabl e Encounter Details Date Type Department Care Team (Late st Contact Info) Description 11/08/2020 MyC Medical Advice [facility] [address] [place] [phone] [place] [address] [place], [place] [phone] Social History Tobacco Use Types Packs/Day Years Used Date Smoking Tobacco: Never Smokeless Tobacco: Never Alcohol Use Standard Drinks/Week Comments Yes 0 (1 standard drink = 0.6 oz pur e alcohol) Occasionally PHQ-2 Answer Date Recorded PHQ-2 Score 0 08/01/2020 Comments No Sex and Gender Information Value Date Recorded Sex Assigned at Female 11/08/2020 11:42 AM CDT Legal Sex Female 4:45 AM MEDIA RELATIONS COORDINATOR Gender Identity Female 11/08/2020 11:42 AM CDT [...] documented as of this encounter Care Teams Paper Machine Operator Relationship Specialty Start Date End Date Austin Bill MD PCP - General Family Practice 01/18/18 01/26/22 [place] [address] [facility] [place] [address] Assigned PCP 08/29/16 12/13/21 Maynor Cat MD 303 [facility] [address] [place] [address] Assigned OBGYN Provider 01/20/20 2 Maynor Cat MD [address] [facility] [address] [place] [address] Assigned OBGYN Provider 11/30/21 [facility] [address] [place] [address] Assigned PCP 04/23/23 09/19/23 documented as of this encounter
--- OUTSIDE RECORDS SUMMARY | 2024-03-29 16:56 | XMS_ITS | Encounter Summary ---
Author Organization [place] Address [address] [place] [address] Care Team Providers Care Windsmith Name Role Phone Austin Bill MD Primary Care Provider [phone] Austin Bill MD Unavailable [phone] Nba Woods Unavailable Unavailable Maynor Cat MD Unavailable [phone] Maynor Cat MD Unavailable [phone] [facility] Unavailabl e Encounter Details Date Type Department Care Team (Late st Contact Info) Description 11/29/2019 [facility] Medical Advice [facility] [address] [place] [phone] Belkis Vidales Social History Tobacco Use Types Packs/Day Years Used Date Smoking Tobacco: Never Smokeless Tobacco: Never Alcohol Use Standard Drinks/Week Comments Yes 0 (1 standard drink = 0.6 oz pur e alcohol) Occasionally PHQ-2 Answer Date Recorded PHQ-2 Score 0 03/17/2019 Comments No Sex and Gender Information Value Date Recorded Sex Assigned at Female 11/08/2020 11:42 AM CDT Legal Sex Female 4:45 AM BUILDING MAINTENANCE SUPERINTENDENT Gender Identity Female 11/08/2020 11:42 AM CDT Sexual Orientation Straight 11/08/2020 11 :42 AM CDT 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 on file Not on file Not on file COVID-19 Exposure Response Date Recorded In the [...] Total Score: 1 04/21/19 20 11:19 AM BUILDING MAINTENANCE SUPERINTENDENT documented as of this encounter Care Teams Windsmith Relationship Specialty Start Date End Date Austin Bill MD PCP - General Family Practice 01/18/18 01/26/22 [place] [address] [facility] [place] [address] Assigned PCP 08/29/16 12/13/21 Nba Woods Personal Advocate & Liaison (PAL) Family Practice 01/11/20 01/22/20 Maynor Cat MD 303 [facility] [address] [place] [address] Assigned OBGYN Provider 01/20/20 2 Maynor Cat MD 303 [facility] [address] [place] [address] Assigned OBGYN Provider 11/30/21 [facility] [address] [place] [address] Assigned PCP 04/23/23 09/19/23 documented as of this encounter
--- OUTSIDE RECORDS SUMMARY | 2024-03-29 16:56 | XMS_ITS | Encounter Summary ---
Author Organization [facility] Address [address] [place] [address] Care Team Providers Care Brick Molder Hand Name Role Phone Austin Bill MD Primary Care Provider [phone] Austin Bill MD Unavailable [phone] Maynor Cat MD Unavailable [phone] [facility] Unavailabl e Encounter Details Date Type Department Care Team (Late st Contact Info) Description 08/06/2021 [facility] Medical Advice [facility] [id number] [place] [phone] Migdalia Jolley MA Social History Tobacco [...] AM CDT Legal Sex Female 4:45 AM PORTABLE PINCH RIVETER Gender Identity Female 11/08/2020 11:42 AM CDT [...] documented as of this encounter Care Teams Brick Molder Hand Relationship Specialty Start Date End Date Austin Bill MD PCP - General Family Practice 01/18/18 01/26/22 [place] [address] [facility] [place] [address] Assigned PCP 08/29/16 12/13/21 Maynor Cat MD 303 [facility] 100 [address] 160 [place] [address] Assigned OBGYN Provider 11/30/21 [facility] [address] [place] [address] Assigned PCP 04/23/23 09/19/23 documented as of this encounter
--- OUTSIDE RECORDS SUMMARY | 2024-03-29 16:56 | XMS_ITS | Encounter Summary ---
Author Organization [place] Address [address] [place] [address] Care Team Providers Care Filter Assembler Name Role Phone Austin Bill MD Primary Care Provider Austin Bill MD Unavailable [phone] [place] [place] Unavailable Unavailable Maynor Cat MD Unavailable [phone] Maynor Cat MD Unavailable [phone] [facility] Unavailabl e Encounter Details Date Type Department Care Team (Late st Contact Info) Description 02/15/2019 [facility] Medical Advice [facility] [address] [place] [phone] [place] [address] [place], [place] [id number] Social History Tobacco Use Types Packs/Day Years Used Date Smoking Tobacco: Never Smokeless Tobacco: Never Alcohol Use Standard Drinks/Week Comments Yes 0 (1 standard drink = 0.6 oz pur e alcohol) Occasionally Comments No Sex and Gender Information Value Date Recorded Sex Assigned at Female 11/08/2020 11:42 AM CDT Legal Sex Female 4:45 AM COLLEGE ADVISOR Gender Identity Female 11/08/2020 11:42 AM CDT [...] Total Score: 0 04/22/19 19 1:45 PM COLLEGE ADVISOR documented as of this encounter Care Teams Filter Assembler Relationship Specialty Start Date End Date Austin Bill MD PCP - General Family Practice 01/18/18 01/26/22 [place] [address] [place] [address] Assigned PCP 08/29/16 12/13/21 [facility] Personal Advocate & Liaison (PAL) Family Practice 01/11/20 01/22/20 Maynor Cat MD 303 [facility] [address] [place] [address] Assigned OBGYN Provider 01/20/20 2 Maynor Cat MD 303 [facility] [address] [place] [address] Assigned OBGYN Provider 11/30/21 [facility] [address] [place] [address] Assigned PCP 04/23/23 09/19/23 documented as of this encounter
--- OUTSIDE RECORDS SUMMARY | 2024-03-29 16:56 | XMS_ITS | Encounter Summary ---
Author Organization [place] Address [address] [place] [address] Care Team Providers Care Rcp Name Role Phone Austin Bill MD Primary Care Provider [phone] Austin Bill MD Unavailable [phone] Maynor Cat MD Unavailable [phone] [place] [facility] Unavailabl e Encounter Details Date Type Department Care Team (Late st Contact Info) Description 11/07/2021 [facility] Medical Advice [facility] [address] [place] [phone] Migdalia Jolley MA Social History Tobacco [...] AM CDT Legal 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
--- OUTSIDE RECORDS SUMMARY | 2024-03-29 16:56 | XMS_ITS | Encounter Summary ---
Author Organization [place] Address [address] [place] [address] Care Team Providers Care Rod Buster Helper Name Role Phone Austin Bill MD Primary Care Provider Maynor Cat MD Unavailable [phone] [facility] Encounter Details Date Type Department Care Team (Late st Contact Info) Description 12/17/2021 [facility] [address] [place] [address] Maynor Cat MD 303 [facility] [address] [place] [address] Urgency-frequency syndrome (Primary Dx) Social History Tobacco Use Types Packs/Day Years Used Date Smoking Tobacco: Never Smokeless Tobacco: Never Alcohol Use Standard Drinks/Week Comments Yes 0 (1 standard drink = 0.6 oz pur e alcohol) Occasionally PHQ-2 Answer Date Recorded PHQ-2 Score 0 11/25/2021 Comments No Sex and Gender Information Value Date Recorded Sex Assigned at Female 11/08/2020 11:42 AM CDT 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 The patient expressed concerns about the high cost of Myrbetriq. There michael Archer website www[employer]ashups but oftentimes is considerably less expensive and [...] documented as of this encounter Care Teams Rod Buster Helper Relationship Specialty Start Date End Date Austin Bill MD PCP - General Family Practice 10/22/18 10/30/22 Maynor Cat MD 303 [facility] [address] [place] [address] Assigned OBGYN Provider 11/30/21 [facility] [address] [place] [address] Assigned PCP 04/23/23 09/19/23 documented as of this encounter
--- OUTSIDE RECORDS SUMMARY | 2024-03-29 16:56 | XMS_ITS | Encounter Summary ---
Author Organization [place] Address [address] [place] [address] Care Team Providers Care Drill Press Operator Helper Name Role Phone Lydia Marcos MD Primary Care Provider + Austin Bill MD Primary Care Provider [phone] Austin Bill MD Unavailable [phone] Austin Bill MD Unavailable [phone] [place] Unavailable Unavailable Maynor Cat MD Unavailable [phone] Maynor Cat MD Unavailable [phone] [facility] Unavailabl e Encounter Details Date Type Department Care Team (Late st Contact Info) Description 07/29/2016 [facility] [address] [place] [address] Maynor Cat MD [address] [place] [address] 100 [address] 160 [place], [place] [id number] Social History Tobacco Use Types Packs/Day Years Used Date Smoking Tobacco: Never Smokeless Tobacco: Never Alcohol Use Standard Drinks/Week Comments Yes 0 (1 standard drink = 0.6 oz pur e alcohol) Occasionally Comments No Sex and Gender Information Value Date Recorded Sex Assigned at Female 11/08/2020 11:42 AM CDT Legal Sex Female 4:45 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 CLEANER Gender Identity Female 11/08/2020 11:42 AM CDT Sexual Orientation Straight 11/08/2020 11 :42 AM CDT 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 on file Not on file Not on file documented as of this encounter Plan of Treatment Not on file documented as of this encounter Visit Diagnoses Not on filedocumented in this encounter Care Teams Drill Press Operator Helper Relationship Specialty Start Date End Date Lydia Marcos MD PCP - General phlebotomy program coordinator 07/26/16 01/17/18 Austin Bill MD PCP - General Family Practice 01/18/18 01/26/22 [place] [address] [place] [address] PCP - Assigned PCP 08/29/16 06/01/18 [place] [address] [place] [address] Assigned PCP 08/29/16 12/13/21 [facility] Personal Advocate & Liaison (PAL) Family Practice 01/11/20 01/22/20 Maynor Cat MD 303 [facility] [address] [place], [place] [address] Assigned OBGYN Provider 01/20/20 2 Maynor Cat MD 303 [facility] [address] [place], [place] [address] Assigned OBGYN Provider 11/30/21 [facility] [address] [place] [address] Assigned PCP 04/23/23 09/19/23 documented as of this encounter
--- OUTSIDE RECORDS SUMMARY | 2024-03-29 16:56 | XMS_ITS | Referral Summary ---
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 on file Not on file Not on file Last Filed Vital Signs Vital Sign Reading Time Taken Comments Blood Pressure 118/86 12/24/2021 1:36 PM CDT Pulse 69 04/21/2019 10:40 AM PHOTO RETOUCHER Temperature 36.7 C (98 F) 04/21/2019 10:40 AM PHOTO RETOUCHER Respiratory Rate 16 04/21/2019 10:40 AM PHOTO RETOUCHER Oxygen Saturation 98% 04/21/2019 10:40 AM PHOTO RETOUCHER Inhaled Oxygen Concentration - - Weight 69.4 kg (153 lb 1.6 oz) 12/24/2021 1:36 P M CDT Height 162.6 cm (5' 4) 04/21/2019 10:40 AM PHOTO RETOUCHER Body Mass Index 26.28 04/21/2019 10:40 AM PHOTO RETOUCHER Plan of Treatment Not on file Medical Devices Implanted Type Area Television Maintenance Man Device Identifier Shelf Expiration Date Model / Serial / Lot Lead Interstim Kit 3889-28 Implanted:Qty: 1 on 12/07/2018 by Maynor Cat MD at [facility] Leads Right: Sacrum [employer] 3057 / 3057 / Lead Interstim Kit 3889-28 Implanted:Qty: 1 on 12/17/2018 by Maynor Cat MD at [facility] Leads Left: Sacrum [employer] 11/09/2022 3889-28 / / [id number] Stimulator Neuro Inter-Stim Ii 3058 Implanted:Qty: 1 on 12/17/2018 by Maynor Cat MD at [facility] Neu[facility] device Left: Sacrum [employer] 04/26/2020 3058 / [id number] / Lead Implanted:Qty: 1 on 12/07/2018 by Maynor Cat MD at [facility] N/A: Sacrum 3057 / / Procedures Procedure [...] There is no radiographic evidence of malignancy. Maynor Cat MD IMG MAMMOGRAPHY ORDERABLES Kathie l Result * HIV Antigen Antibody Combo (01/29/2016) HIV Antigen Antibody Combo Negative Blood specimen (specimen) Patient Reported LAB - BLOOD ORDERABLES Final Re sult * PAP Smear - HIM Patient Reported (11/05/2015) PAP Smear - HIM Patient Reported Negative EXTERNAL LAB 11/05/2015 Narrative EXTERNAL LAB - 11/05/2015 Please abstract the following data from this visit with this patient into the appropriate field in [facility]: Pap smear done on this date: 11/05/15 (approximately), by this group: [facility] field , results were normal. Patient Reported LABORATORY Final Result EXTERNAL LAB External Lab * PHQ-9 DEPRESSION SCREENING ORDER (09/18/2015) PHQ9 SCORE 5 Narrative Yasmeen Rubi - 09/18/2015 [facility] CLINICAL NOTES 12/12/2013-03/17/2016 us Provider Outside OTHER Final Result from Last 3 Months or Most Recently Relevant to Health Maintenance Insurance [facility] [employer] [facility] [employer]
--- OUTSIDE RECORDS SUMMARY | 2024-03-29 16:56 | XMS_ITS | Encounter Summary ---
Author Organization [facility] Address [address] [place] [address] Care Team Providers Care Clay Thrower Name Role Phone Lydia Marcos MD Primary Care Provider + Austin Bill MD Primary Care Provider [phone] Austin Bill MD Unavailable [phone] Austin Bill MD Unavailable [phone] [place] Unavailable Unavailable Maynor Cat MD Unavailable [phone] Maynor Cat MD Unavailable [phone] [facility] Unavailabl e Encounter Details Date Type Department Care Team (Latest Contact Info) Description 09/15/2016 Historic Results Social History Tobacco Use Types Packs/Day Years Used Date Smoking Tobacco: Never Smokeless Tobacco: Never Alcohol Use Standard Drinks/Week Comments No 0 (1 standard drink = 0.6 oz pur e alcohol) Comments No Sex and Gender Information Value Date Recorded Sex Assigned at Female 11/08/2020 11:42 AM CDT Legal Sex Female 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 Gender Identity Female 11/08/2020 11:42 AM CDT Sexual Orientation Straight 11/08/2020 11 :42 AM CDT documented as of this encounter Plan of Treatment Not on file documented as of this encounter Visit Diagnoses Not on filedocumented in this encounter Additional Health Concerns Assessment Noted Time PHQ-9 Depression Total Score: 10 017 7:28 AM CDT documented as of this encounter Care Teams Clay Thrower Relationship Specialty Start Date End Date Lydia Marcos MD PCP - General social media specialist 07/26/16 01/17/18 Austin Bill MD PCP - General Family Practice 01/18/18 01/26/22 [place] [address] [place] [address] PCP - Assigned PCP 08/29/16 06/01/18 [place] [address] [place] [address] Assigned PCP 08/29/16 12/13/21 [facility] [place] Personal Advocate & Liaison (PAL) Family Practice 01/11/20 01/22/20 Maynor Cat MD 303 [facility] [address] 160 [place] [address] Assigned OBGYN Provider 01/20/20 2 Maynor Cat MD 303 [facility] [address] [place] [address] Assigned OBGYN Provider 11/30/21 [facility] [address] [place] [address] Assigned PCP 04/23/23 09/19/23 documented as of this encounter
[2024-03-29 17:26] VITALS: BP 120/76; PULSE 7; RESP 18; TEMP 37.3; O2SAT 98; BMI 23.7
--- NOTE | 2024-03-29 17:36 | CRLHL7_ITS ---
For Patients: As a result of the Cures Act, medical imaging exams and procedure reports are released immediately into your electronic medical record. You may view this report before your referring provider. If you have questions, please contact your health care provider. Indication: FELL ON ARM WHILE ICE SKATING, CANT MOVE ARM. Technique: Left humerus, 2 views. Comparison: None. Findings: Bones: Probably mildly comminuted, nondisplaced greater tubercle fracture. No definite extension to the articular surface.. Joint spaces: Glenohumeral and AC joint are unremarkable.. Soft tissues: Soft tissue swelling surrounding the fracture site.. Impression: Nondisplaced greater tubercle fracture. Dictated by Dariela Catherine MD @ 03/29/2024 7:43:27 PM (Electronically Signed)
--- NOTE | 2024-03-29 18:41 | ED.UPPEXIN ---
HPI - Extremity Injury (Upper) General Chief Complaint: Extremity Pain/Injury, Upper Stated Complaint: fell ise skating, may have broken shoulder Time Seen by Provider: 03/29/24 18:10 History of Present Illness HPI narrative: This 44-year-old female comes in with an injury to her left upper arm. She was ice skating and went over some rough ice that had refrozen because of some car tracks at left a rut. She tripped over this and fell on to the upper portion of her left arm. She did not hit her head or have loss of consciousness. She felt a crack when this occurred and has pain in her arm in this area. She has worsening pain when attempting to lift her arm. Related Data Home Medications ?Medication ?Instructions ?Recorded ?Confirmed fluvoxamine 100 mg 100 mg PO DAILY 03/29/24 03/29/24 capsule,extended release 24 hr fluvoxamine 50 mg tablet 50 mg PO QPM 03/29/24 03/29/24 thyroid (pork) 60 mg tablet (LABORATORY TECHNOLOGIST 60 mg PO QAM 03/29/24 03/29/24 Thyroid) Previous Rx's ?Medication ?Instructions ?Recorded doxycycline hyclate 100 mg capsule 100 mg PO BID #60 caps 01/22/23 ketoconazole 2 % topical cream 1 applic topical QDAY #60 grams 01/22/23 lorazepam 0.5 mg tablet 0.5 - 1 mg (1 - 2 x 0.5 mg) PO 11/10/23 QDAY PRN anxiety #10 tabs fluoxetine 20 mg capsule 40 mg (2 x 20 mg) PO DAILY #180 12/21/23 caps trazodone 50 mg tablet 50 mg PO .Bedtime as needed PRN 12/21/23 insomnia #90 tabs Allergies Allergy/AdvReac Type Severity Reaction Status Date / Time ondansetron Allergy Severe Shortness Verified 01/22/23 12:19 of breath, hives Review of Systems Status of ROS: Reports: 10 or more systems reviewed and unremarkable except as noted in History and below Narrative: Constitutional: No fevers, no weight gain or loss. Eyes: No discharge. No vision changes. HENT: No congestion, no sore throat, no ear pain. Cardiovascular: No chest pain, no palpitations. Respiratory: No shortness of breath, no wheezes, no cough. Gastrointestinal: No abdominal pain, no vomiting, no diarrhea. Genitourinary: No dysuria, no hematuria. Musculoskeletal: Left upper arm injury as described above. Skin: No rashes, no pruritis. Neurological: No dizziness, weakness, sensory change, speech change. Endo/Heme/Allergies: No bruising or bleeding. No polydipsia. Pysch: no suicidality, no anxiety, no insomnia. All other systems reviewed and are negative. [facility] Medical History (Updated 03/29/24 @ 18:45 by Moustapha Luong MD) Perioral dermatitis ?L71.0 - Perioral dermatitis (ICD-10) Urge incontinence ?N39.41 - Urge incontinence (ICD-10) History of temporomandibular joint disorder ?Z87.39 - Personal history of other diseases of the musculoskeletal system and connective tissue (ICD-10) Depression ?F32.A - Depression, unspecified (ICD-10) Chronic insomnia ?F51.04 - Psychophysiologic insomnia (ICD-10) Anxiety ?F41.9 - Anxiety disorder, unspecified (ICD-10) Surgical History (Updated 12/18/22 @ 09:10 by Deisy Mary MD) Sacral nerve stimulator present (12/07/18) ?Z96.82 - Presence of neurostimulator (ICD-10) History of tonsillectomy (1996) ?Z90.89 - Acquired absence of other organs (ICD-10) History of colposcopy (2005) ?Z98.890 - Other specified postprocedural states (ICD-10) History of breast augmentation (2017) ?Z98.82 - Breast implant status (ICD-10) History of abdominoplasty (2018) ?Z98.890 - Other specified postprocedural states (ICD-10) Family History (Updated 12/18/22 @ 08:51 by Deisy Mary MD) Mother Anxiety disorder Atrial fibrillation Paternal Grandmother Breast cancer, Onset Age: 50 Colon cancer, Onset Age: 70 Father Macular degeneration Maternal Grandfather Stroke, Onset Age: 65 Social History (Updated 12/18/22 @ 11:37 by Татьяна [place] ~ CTA) 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: , 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, [id number] mom,, 4 boys Nonsmoker Social drinker, 3/week, no rec drugs Exercises 3 times a week 60-90 minutes cardio and weights What is your current living situation?: I presently have a place to live Problems where you live: no known problems In the past 12 months, utilities in danger of being shut off: no In past 12 months, lack of transportation kept you from medical appts, meetings, work, or getting things needed for daily living: no In the past 12 mos, have been you worried that your food would run out before you had money to buy more?: never true In the past 12 mos, the food you bought just didn't last and you didn't have money to buy more?: never true Smoking Status: Never smoker How often does anyone, including family, friends and others, physically hurt you: never How often does anyone, including family, friends and others, insult or talk down to you: never How often does anyone, including family, friends and others, threaten you with harm: never How often does anyone, including family, friends and others, scream or curse at you: never Exam Narrative: Exam Narrative: Constitutional: Well-developed, well-nourished, no acute distress. HEENT: Normocephalic, atraumatic. Neck: Normal range of motion. Nontender. Supple. Heart: Intact distal pulses. Lungs: No chest discomfort. No wheezes, rhonchi, or rales. Abdomen: Nontender. Back: Normal range of motion. Extremities: Tenderness overlying the lateral aspect of the left proximal humerus. No sign of deformity. Decreased range of motion due to pain. Skin: Intact. No rash. Warm. No erythema or pallor. Neurologic: No altered sensation. No weakness. Alert and oriented. Psychiatric: No suicidality. No anxiety or depression. No insomnia. Nursing notes and vitals signs are reviewed. Const: Vital Signs, click to edit/add: Vital Signs - 24 hr 03/29/24 17:26 Temperature 99.2 F Pulse Rate [Pulse Oximeter] 7 L Respiratory Rate 18 Blood Pressure [Ri ght Upper Arm] 120/76 Pulse Oximetry 98 Oxygen Delivery Me thod Room Air Course Vital Signs Vital signs: Initial Vital Signs Temperature 99.2 F 03/29/24 17:26 Temperature Source Temporal Artery Scan 03/29/24 17:26 Pulse Rate 7 L 03/29/24 17:26 Respiratory Rate 18 12/31/24 17:26 Blood Pressure 120/76 03/29/24 17:26 Blood Pressure Mean 90 03/29/24 17:26 Blood Pressure Position Sitting 03/29/24 17:26 Pulse Oximetry 98 03/29/24 17:26 Oxygen Delivery Method Room Air 03/29/24 17:26 Vital Signs Temperature 99.2 F 03/29/24 17:26 Pulse Rate 7 L 03/29/24 17:26 Respiratory Rate 18 03/29/24 17:26 Blood Pressure 120/76 03/29/24 17:26 Pulse Oximetry 98 03/29/24 17:26 Oxygen Delivery Method Room Air 03/29/24 17:26 Temperature 99.2 F 03/29/24 17:26 Pulse Rate 7 L 03/29/24 17:26 Respiratory Rate 18 03/29/24 17:26 Blood Pressure 120/76 03/29/24 17:26 Pulse Oximetry 98 03/29/24 17:26 Oxygen Delivery Method Room Air 03/29/24 17:26 MDM - Extremity Injury (Upper) MDM Narrative Medical decision making narrative: This patient comes in with an injury to her left proximal humerus. X-ray images by my review show a nondisplaced fracture of this area. Radiology report is pending. The patient received a sling and prescription for some Instymed tablets of [place] and additional tablets from her preferred pharmacy. I advised her to follow-up with orthopedic clinic or her primary physician. Discharge Plan Discharge Clinical Impression: Fracture, humerus Patient Disposition: Home w/ Parent or Adult Condition: Stable Additional Instructions: Wear sling and use pain medicines as needed and directed. Follow up with orthopedic clinic or primary physician for ongoing management. Prescriptions: No Action doxycycline hyclate 100 mg capsule 100 mg PO BID Qty: 60 0RF ketoconazole 2 % cream 1 applic topical QDAY Qty: 60 0RF Rx Instructions: Apply every morning. fluvoxamine 50 mg tablet 50 mg PO QPM fluvoxamine 100 mg capsule,extended release 24hr 100 mg PO DAILY thyroid (pork) [LABORATORY TECHNOLOGIST Thyroid] 60 mg tablet 60 mg PO QAM lorazepam 0.5 mg tablet 0.5 - 1 mg PO QDAY PRN (Reason: anxiety) Qty: 10 0RF fluoxetine 20 mg capsule 40 mg PO DAILY Qty: 180 0RF trazodone 50 mg tablet 50 mg PO .Bedtime as needed PRN (Reason: insomnia) Qty: 90 0RF Rx Instructions: 1 tablets as needed for insomnia Follow Up/Referrals: Provider,Not a Local [Primary Care Provider] - Stand Alone Forms: [employer] Info Instructions
--- OUTSIDE RECORDS SUMMARY | 2024-03-29 18:50 | XMS_ITS | Clinical Summary ---
Author Organization [facility] Address [place], [place] [address] Care Team Providers Care Shotblaster Name Role Phone Shelbi Braun Primary Care Provider Allergies Active Allergy Reactions Criticality Noted Date Comments Ondansetron Throat Swelling/Closing High 12/11/2023 Medications traZODone (DESYREL) 50 mg tablet Take 1 Tablet (50 mg) by mouth at bedtime. 4 Active LORazepam (ATIVAN) 0.5 mg tab Take 1 Tablet (0.5 mg) by mouth every 6 hours if needed for Anxiety. 4 Active thyroid (INBOUND CALL CENTER REPRESENTATIVE Thyroid) 60 mg tablet Take 1 Tablet [...] Description 01/18/2024 1:00 PM CDT Office Visit [facility] [address] [place] [address] Shelbi Braun PA Medication Management (Fluoxamine - [...] Former Cigarettes Tobacco Cessation:Counseling Given: Not Answered [facility] Utilities Answer Date Recorded Do you [...] on file Legal Sex Female 4:34 PM STUDIO DESIGNER Gender Identity Not on file Sexual Orientation [...] st Contact Info) Description 04/11/2024 1:00 PM STUDIO DESIGNER Ancillary Procedure [facility] [address] [place] [address] Health Maintenance Due Date Last Done Comments [...] Procedure Name Priority Date/Time Associated Diagnosis Comments GOLF BALL INSPECTOR THIN PREP PAP SCREEN IMAGED Routine 05/02/2019 12:00 PM STUDIO DESIGNER from Last 3 Months or Most Recently Relevant to Health Maintenance Results * GOLF BALL INSPECTOR THIN PREP PAP SCREEN IMAGED (05/02/2019 12:00 PM STUDIO DESIGNER) Case Report Gynecologic Cytology Report Case: [id number] Authorizing Provider: Kerri Luna MD Collected: 05/02/2019 1200 Ordering Location: [facility] Received: 05/03/2019 0926 First Screen: Cosme Agarwal Pathologist: Deb Rose DO Specimen: GOLF BALL INSPECTOR ThinPrep Vial Screening, Cervical/Vaginal 05/12/2019 10:34 AM STUDIO DESIGNER [employer] LABORATORY-C ENTRAL LABORATORY INTERPRETATION/ RESULT NEGATIVE FOR INTRAEPITHELIAL LESION OR MALIGNANCY (NIL) (none) 05/12/2019 10:34 AM STUDIO DESIGNER [facility] LABORAT[facility]-C ENTRAL LABORATORY R NON-NEOPLASTIC FINDING(S) Reactive cellular changes associated with inflammation/repa ir 05/12/2019 10:34 AM STUDIO DESIGNER [facility] LABORAT[facility]-C ENTRAL LABORATORY SPECIMEN ADEQUACY Satisfactory for evaluation Endocervical component present 05/12/2019 10:34 AM [facility] HPV REQUEST HPV and PAP 05/12/2019 10:34 AM [facility] Date of LMP 04/23/2019 05/12/2019 10:34 AM [facility] Additional Information 05/12/2019 10:34 AM [facility] Comment: Interpreted at [facility] - [address], [place] [address] Automated Review Successful 05/12/2019 10:34 AM [facility] Comment:Specimen processed s uccessfully by automated auto emissions technician device, [employer] Imaging System, [employer] ANCILLARY TESTING GOLF BALL INSPECTOR HPV Ordered, Please see separate report 05/12/2019 10:34 AM [facility] Note The pap test is a screening technique, not a diagnostic procedure. It is used primarily to screen for squamous cancers and precursor lesions. Published studies have shown that it is subject to both false negative and false positive results. The pap test should not be used as the sole means to diagnose or exclude pre-malignant and malignant lesions. 05/12/2019 10:34 AM [facility] Other (Cervical/Vagina l) 05/02/2019 12:00 PM STUDIO DESIGNER 05/03/2019 9:26 AM STUDIO DESIGNER Kerri Luna MD PATHOLOGY/CYTOLOGY Final Result [facility] [address] [place] [address], from Last 3 Months or Most Recently Relevant to Health Maintenance Insurance [facility] IN[facility] FAMILY PLANS Care Teams Shotblaster Relationship Specialty Start Date End Date Shelbi Braun PA [address] [place] [address] PCP - General Physician Fine Dining Server 01/18/24
--- OUTSIDE RECORDS SUMMARY | 2024-03-29 18:50 | XMS_ITS | Referral Summary ---
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 on file Not on file Not on file Last Filed Vital Signs Vital Sign Reading Time Taken Comments Blood Pressure 118/86 12/24/2021 1:36 PM CDT Pulse 69 04/21/2019 10:40 AM BENEFITS CONSULTANT Temperature 36.7 C (98 F) 04/21/2019 10:40 AM BENEFITS CONSULTANT Respiratory Rate 16 04/21/2019 10:40 AM BENEFITS CONSULTANT Oxygen Saturation 98% 04/21/2019 10:40 AM BENEFITS CONSULTANT Inhaled Oxygen Concentration - - Weight 69.4 kg (153 lb 1.6 oz) 12/24/2021 1:36 P M CDT Height 162.6 cm (5' 4) 04/21/2019 10:40 AM BENEFITS CONSULTANT Body Mass Index 26.28 04/21/2019 10:40 AM BENEFITS CONSULTANT Plan of Treatment Not on file Medical Devices Implanted Type Area Pediatric Speech Language Pathologist Device Identifier Shelf Expiration Date Model / Serial / Lot Lead Interstim Kit 3889-28 Implanted:Qty: 1 on 12/07/2018 by Maynor Cat MD at [facility] Leads Right: Sacrum [employer] 3057 / 3057 / Lead Interstim Kit 3889-28 Implanted:Qty: 1 on 12/17/2018 by Maynor Cat MD at [facility] Leads Left: Sacrum [employer] 11/09/2022 3889-28 / / [id number] Stimulator Neuro Inter-Stim Ii 3058 Implanted:Qty: 1 on 12/17/2018 by Maynor Cat MD at [facility] Neurology device Left: Sacrum [employer] 04/26/2020 3058 / [id number] / Lead Implanted:Qty: 1 on 12/07/2018 by Maynor Cat MD at [facility] N/A: Sacrum 3057 / / Procedures Procedure [...] this patient into the appropriate field in [facility]: Pap smear done on this date: 11/05/15 (approximately), by this group: [facility] field , results were normal. Patient Reported LABORATORY Final Result EXTERNAL LAB External Lab * PHQ-9 DEPRESSION SCREENING ORDER (09/18/2015) PHQ9 SCORE 5 Narrative Yasmeen Rubi - 09/18/2015 [facility] CLINICAL NOTES 12/12/2013-03/17/2016 us Provider Outside OTHER Final Result from Last 3 Months or Most Recently Relevant to Health Maintenance Insurance [employer]ILY [employer]
--- OUTSIDE RECORDS SUMMARY | 2024-03-29 18:50 | XMS_ITS | Encounter Summary ---
Author Organization [place] Address [address] [place] [address] Care Team Providers Care Hat Trimmer Name Role Phone Austin Bill MD Primary Care Provider [phone] Austin Bill MD Unavailable [phone] Maynor Cat MD Unavailable [phone] [facility] Unavailabl e Encounter Details Date Type Department Care Team (Late st Contact Info) Description 08/06/2021 [facility] Medical Advice [facility] [address] [place] [phone] Migdalia Jolley MA Social History Tobacco [...] AM CDT Legal Sex Female 4:45 AM RABBIT BREEDER Gender Identity Female 11/08/2020 11:42 AM CDT [...] documented as of this encounter Care Teams Hat Trimmer Relationship Specialty Start Date End Date Austin Bill MD PCP - General Family Practice 01/18/18 01/26/22 [place] [address] [facility] [place] [address] Assigned PCP 08/29/16 12/13/21 Maynor Cat MD 303 [facility] [address] [place] [address] Assigned OBGYN Provider 11/30/21 [facility] [address] [place] [address] Assigned PCP 04/23/23 09/19/23 documented as of this encounter
--- OUTSIDE RECORDS SUMMARY | 2024-03-29 18:50 | XMS_ITS | Encounter Summary ---
Author Organization [place] Address [address] [place] [address] Care Team Providers Care Studio Camera Operator Name Role Phone Austin Bill MD Primary Care Provider Austin Bill MD Unavailable [phone] Nba Woods Unavailable Unavailable Maynor Cat MD Unavailable [phone] Maynor Cat MD Unavailable [phone] [facility] Unavailabl e Encounter Details Date Type Department Care Team (Late st Contact Info) Description 02/15/2019 [facility] [place] [facility] [address] [place] [phone] [place] [address] [place], [place] [id number] Social History Tobacco Use Types Packs/Day Years Used Date Smoking Tobacco: Never Smokeless Tobacco: Never Alcohol Use Standard Drinks/Week Comments Yes 0 (1 standard drink = 0.6 oz pur e alcohol) Occasionally Comments No Sex and Gender Information Value Date Recorded Sex Assigned at Female 11/08/2020 11:42 AM CDT Legal Sex Female 4:45 AM VICE PRESIDENT OF TALENT ACQUISITION Gender Identity Female 11/08/2020 11:42 AM CDT [...] Total Score: 0 04/22/19 19 1:45 PM VICE PRESIDENT OF TALENT ACQUISITION documented as of this encounter Care Teams Studio Camera Operator Relationship Specialty Start Date End Date Austin Bill MD PCP - General Family Practice 01/18/18 01/26/22 [place] [address] [place] [address] Assigned PCP 08/29/16 12/13/21 Nba Wodos Personal Advocate & Liaison (PAL) Family Practice 01/11/20 01/22/20 Maynor Cat MD [address] [facility] [address] [place] [address] Assigned OBGYN Provider 01/20/20 2 Maynor Cat MD [address] [facility] [address] [place] [address] Assigned OBGYN Provider 11/30/21 [facility] [address] [place] [address] Assigned PCP 04/23/23 09/19/23 documented as of this encounter
--- OUTSIDE RECORDS SUMMARY | 2024-03-29 18:50 | XMS_ITS | Clinical Summary ---
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 Not on file Not on file Last Filed Vital Signs Vital Sign Reading Time Taken Comments Blood Pressure 118/86 12/24/2021 1:36 PM CDT Pulse 69 04/21/2019 10:40 AM KITCHEN AND BATH DESIGNER Temperature 36.7 C (98 F) 04/21/2019 10:40 AM KITCHEN AND BATH DESIGNER Respiratory Rate 16 04/21/2019 10:40 AM KITCHEN AND BATH DESIGNER Oxygen Saturation 98% 04/21/2019 10:40 AM KITCHEN AND BATH DESIGNER Inhaled Oxygen Concentration - - Weight 69.4 kg (153 lb 1.6 oz) 12/24/2021 1:36 P M CDT Height 162.6 cm (5' 4) 04/21/2019 10:40 AM KITCHEN AND BATH DESIGNER Body Mass Index 26.28 04/21/2019 10:40 AM KITCHEN AND BATH DESIGNER Plan of Treatment Health Maintenance Due Date [...] this topic Medical Devices Implanted Type Area Building Principal Device Identifier Shelf Expiration Date Model / Serial / Lot Lead Interstim Kit 3889-28 Implanted:Qty: 1 on 12/07/2018 by Maynor Cat MD at [facility] Leads Right: Sacrum [employer] 3057 / 3057 / Lead Interstim Kit 3889-28 Implanted:Qty: 1 on 12/17/2018 by Maynor Cat MD at [facility] Leads Left: Sacrum [employer] 11/09/2022 3889-28 / / [id number] Stimulator Neuro Inter-Stim Ii 3058 Implanted:Qty: 1 on 12/17/2018 by Maynor Cat MD at [facility] Neurology device Left: Sacrum [employer] 04/26/2020 3058 / [id number] / Lead Implanted:Qty: 1 on 12/07/2018 by Maynor Cat MD at [facility] N/A: Sacrum 3057 / / Procedures Procedure [...] this date: 11/05/15 (approximately), by this group: [facility] , results were normal. us Patient Reported LABORATORY Final Result EXTERNAL LAB External Lab * PHQ-9 DEPRESSION SCREENING ORDER (09/18/2015) PHQ9 SCORE 5 Narrative Yasmeen Rubi - 09/18/2015 [facility] CLINICAL NOTES 12/12/2013-03/17/2016 us Provider Outside OTHER Final Result from Last 3 Months or Most Recently Relevant to Health Maintenance Insurance [facility] INDIV[employer]UAL FAMILY [employer] [facility] [employer]
--- OUTSIDE RECORDS SUMMARY | 2024-03-29 18:50 | XMS_ITS | Encounter Summary ---
Author Organization [place] Address [address] [place] [address]. [place] [address] Care Team Providers Care Unix Administrator Name Role Phone Austin Bill MD Primary Care Provider [phone] Austin Bill MD Unavailable [phone] Maynor Cat MD Unavailable [phone] Maynor Cat MD Unavailable [phone] [facility] Unavailabl e Encounter Details Date Type Department Care Team (Late st Contact Info) Description 11/08/2020 [facility] Medical Advice [facility] [address] [place] [address] [place] [address] [place], [place] [phone] Social History Tobacco Use Types Packs/Day Years Used Date Smoking Tobacco: Never Smokeless Tobacco: Never Alcohol Use Standard Drinks/Week Comments Yes 0 (1 standard drink = 0.6 oz pur e alcohol) Occasionally PHQ-2 Answer Date Recorded PHQ-2 Score 0 08/01/2020 Comments No Sex and Gender Information Value Date Recorded Sex Assigned at Female 11/08/2020 11:42 AM CDT Legal Sex Female 4:45 AM DESIGNER WRITER Gender Identity Female 11/08/2020 11:42 AM CDT [...] documented as of this encounter Care Teams Unix Administrator Relationship Specialty Start Date End Date Austin Bill MD PCP - General Family Practice 01/18/18 01/26/22 [place] [address] [facility] [place] [address] Assigned PCP 08/29/16 12/13/21 Maynor Cat MD 303 [facility] [address] [place] [address] Assigned OBGYN Provider 01/20/20 2 Maynor Cat MD 303 [facility] [address] [place] [address] Assigned OBGYN Provider 11/30/21 [facility] [address] [place] [address] Assigned PCP 04/23/23 09/19/23 documented as of this encounter
--- OUTSIDE RECORDS SUMMARY | 2024-03-29 18:50 | XMS_ITS | Encounter Summary ---
Author Organization [place] Address [address] [place] [address] Care Team Providers Care Logistics Engineer Name Role Phone Austin Bill MD Primary Care Provider [phone] Austin Bill MD Unavailable [phone] Maynor Cat MD Unavailable [phone] [facility] Unavailabl e Encounter Details Date Type Department Care Team (Late st Contact Info) Description 11/07/2021 [facility] [place] Adv[place] [facility] [address] [place] [phone] Migdalia Jolley MA Social History Tobacco [...] AM CDT Legal Sex Female 4:45 AM LICENSED PHYSICAL THERAPIST Gender Identity Female 11/08/2020 11:42 AM CDT [...] documented as of this encounter Care Teams Logistics Engineer Relationship Specialty Start Date End Date Austin Bill MD PCP - General Family Practice 01/18/18 01/26/22 [place] [address] [facility] [place] [address] Assigned PCP 08/29/16 12/13/21 Maynor Cat MD 303 [facility] [address] [place] [address] Assigned OBGYN Provider 11/30/21 [facility] [address] [place] [address] Assigned PCP 04/23/23 09/19/23 documented as of this encounter
--- OUTSIDE RECORDS SUMMARY | 2024-03-29 18:50 | XMS_ITS | Encounter Summary ---
Author Organization [place] Address [address] [place] [address] Care Team Providers Care Citrix Systems Administrator Name Role Phone Lydia Marcos MD Primary Care Provider + Austin Bill MD Primary Care Provider Austin Bill MD Unavailable [phone] Austin Bill MD Unavailable [phone] Nba Woods Unavailable Unavailable Maynor Cat MD Unavailable [phone] Maynor Cat MD Unavailable [phone] [facility] Unavailabl e Encounter Details Date Type Department Care Team (Late st Contact Info) Description 07/29/2016 [facility] [address] [place] [address] Maynor Cat MD [address] [place] [address] [address] [place], [place] [id number] Social History Tobacco Use Types Packs/Day Years Used Date Smoking Tobacco: Never Smokeless Tobacco: Never Alcohol Use Standard Drinks/Week Comments Yes 0 (1 standard drink = 0.6 oz pur e alcohol) Occasionally Comments No Sex and Gender Information Value Date Recorded Sex Assigned at Female 11/08/2020 11:42 AM CDT Legal Sex Female 4:45 AM EDGE TRIMMER MECHANIC Gender Identity Female 11/08/2020 11:42 AM CDT Sexual Orientation Straight 11/08/2020 11 :42 AM CDT 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 on 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 Not on file Not on file documented as of this encounter Plan of Treatment Not on file documented as of this encounter Visit Diagnoses Not on filedocumented in this encounter Care Teams Citrix Systems Administrator Relationship Specialty Start Date End Date Lydia Marcos MD PCP - General continuity reader 07/26/16 01/17/18 Austin Bill MD PCP - General Family Practice 01/18/18 01/26/22 [place] [address] [place] [address] PCP - Assigned PCP 08/29/16 06/01/18 [place] [address] [place] [address] Assigned PCP 08/29/16 12/13/21 Nba Woods Personal Advocate & Liaison (PAL) Family Practice 01/11/20 01/22/20 Maynor Cat MD 303 [facility] [address] [place], [place] [address] Assigned OBGYN Provider 01/20/20 2 Maynor Cat MD 303 [facility] [address] [place], [place] [address] Assigned OBGYN Provider 11/30/21 [facility] [address] [place] [address] Assigned PCP 04/23/23 09/19/23 documented as of this encounter
--- OUTSIDE RECORDS SUMMARY | 2024-03-29 18:50 | XMS_ITS | Encounter Summary ---
Author Organization [place] Address [address] [place] [address] Care Team Providers Care Venipuncturist Name Role Phone Austin Bill MD Primary Care Provider [phone] Austin Bill MD Unavailable [phone] Nba Woods Unavailable Unavailable Maynor Cat MD Unavailable [phone] Maynor Cat MD Unavailable [phone] [facility] Unavailabl e Encounter Details Date Type Department Care Team (Late st Contact Info) Description 11/29/2019 [facility] [place] [facility] [address] [place] [phone] Belkis Vidales Social History Tobacco Use [...] AM CDT Legal Sex Female 4:45 AM AIR EXPORT COORDINATOR Gender Identity Female 11/08/2020 11:42 AM [...] Total Score: 1 04/21/19 20 11:19 AM AIR EXPORT COORDINATOR documented as of this encounter Care Teams Venipuncturist Relationship Specialty Start Date End Date Austin Bill MD PCP - General Family Practice 01/18/18 01/26/22 [place] [address] [facility] [place] [address] Assigned PCP 08/29/16 12/13/21 Nba Woods Personal Advocate & Liaison (PAL) Family Practice 01/11/20 01/22/20 Maynor Cat MD 303 [facility] [address] [place] [address] Assigned OBGYN Provider 01/20/20 2 Maynor Cat MD 303 [facility] [address] [place] [address] Assigned OBGYN Provider 11/30/21 [facility] [address] [place] [address] Assigned PCP 04/23/23 09/19/23 documented as of this encounter
--- OUTSIDE RECORDS SUMMARY | 2024-03-29 18:50 | XMS_ITS | Encounter Summary ---
Author Organization [place] Address [address] [place] [address] Care Team Providers Care Psych Sales Specialist Name Role Phone Austin Blil MD Primary Care Provider [phone] Austin Bill MD Unavailable [phone] Maynor Cat MD Unavailable [phone] [facility] Unavailabl e Encounter Details Date Type Department Care Team (Late st Contact Info) Description 07/19/2021 [facility] Medical Advice [facility] [address] [place] [phone] Madison Harris, DIE BAKER Social History Tobacco Use Types Packs/Day Years Used Date Smoking Tobacco: Never Smokeless Tobacco: Never Alcohol Use Standard Drinks/Week Comments Yes 0 (1 standard drink = 0.6 oz pur e alcohol) Occasionally PHQ-2 Answer Date Recorded PHQ-2 Score 0 08/01/2020 Comments No Sex and Gender Information Value Date Recorded Sex Assigned at Female 11/08/2020 11:42 AM CDT Legal Sex Female 4:45 AM ADMIN PROG COORD Gender Identity Female 11/08/2020 11:42 AM CDT [...] documented as of this encounter Care Teams Psych Sales Specialist Relationship Specialty Start Date End Date Austin Bill MD PCP - General Family Practice 01/18/18 01/26/22 [place] [address] [facility] [place] [address] Assigned PCP 08/29/16 12/13/21 Maynor Cat MD 303 [facility] [address] [place] [address] Assigned OBGYN Provider 11/30/21 [facility] [address] [place] [address] Assigned PCP 04/23/23 09/19/23 documented as of this encounter
--- OUTSIDE RECORDS SUMMARY | 2024-03-29 18:50 | XMS_ITS | Encounter Summary ---
Author Organization [place] Address [address] [place] [address] Care Team Providers Care Coating Machine Feeder Name Role Phone Austin Bill MD Primary Care Provider [phone] Maynor Cat MD Unavailable [phone] [facility] Encounter Details Date Type Department Care Team (Late st Contact Info) Description 12/17/2021 [facility] [address] [place] [address] Maynor Cat MD [facility] [address] [place] [address] Urgency-frequency syndrome (Primary Dx) Social [...] AM CDT Legal Sex Female 4:45 AM RELAY CHECKER Gender Identity Female 11/08/2020 11:42 AM CDT [...] for Vesicare 10 mg daily to the [facility] pharmacy in [place]. The patient expressed concerns about the high cost of Myrbetriq. There michael [place] website [email or web address] Fairly but oftentimes is considerably less expensive and [...] documented as of this encounter Care Teams Coating Machine Feeder Relationship Specialty Start Date End Date Austin Bill MD PCP - General Family Practice 10/22/18 10/30/22 Maynor Cat MD [address] [facility] [address] [place] [address] Assigned OBGYN Provider 11/30/21 [facility] [address] [place] [address] Assigned PCP 04/23/23 09/19/23 documented as of this encounter
--- OUTSIDE RECORDS SUMMARY | 2024-03-29 18:50 | XMS_ITS | Encounter Summary ---
Author Organization [facility] Address [address] [place] [address] Care Team Providers Care Keyboarding Clerk Name Role Phone Lydia Marcos MD Primary Care Provider + Austin Bill MD Primary Care Provider + [phone] Austin Bill MD Unavailable [phone] Austin Bill MD Unavailable [phone] [facility] Unavailable Unavailable Maynor Cat MD Unavailable [phone] Maynor Cat MD Unavailable [phone] [facility] Unavailabl e Encounter [...] AM CDT Legal Sex Female 4:45 AM NURSE PRACTITIONER HOME ASSESSMENTS Gender Identity Female 11/08/2020 11:42 AM CDT Sexual Orientation Straight 11/08/2020 11 :42 AM CDT documented as of this encounter Plan of Treatment Not on file documented as of this encounter Visit Diagnoses Not on filedocumented in this encounter Additional Health Concerns Assessment Noted Time PHQ-9 Depression Total Score: 10 017 7:28 AM CDT documented as of this encounter Care Teams Keyboarding Clerk Relationship Specialty Start Date End Date Lydia Marcos MD PCP - General freight representative 07/26/16 01/17/18 Austin Bill MD PCP - General Family Practice 01/18/18 01/26/22 [place] [address] [place] [address] PCP - Assigned PCP 08/29/16 06/01/18 [place] [address] [place] [address] Assigned PCP 08/29/16 12/13/21 [facility] Personal Advocate & Liaison (PAL) Family Practice 01/11/20 01/22/20 Maynor Cat MD [address] [id number] [place] [address] Assigned OBGYN Provider 01/20/20 2 Maynor Cat MD [phone] [place] [address] Assigned OBGYN Provider 11/30/21 [facility] [address] [place] [address] Assigned PCP 04/23/23 09/19/23 documented as of this encounter
== END 2024-03-29 19:12 | disposition home or self-care (01) ==
LOC: ED 18:48
PROVIDERS: Emergency Provider Emergency Medicine Emergency Medical Services
DX: S42.202A Unspecified fracture of upper end of left humerus, initial encounter for closed fracture (principal); V00.211A Fall from ice-skates, initial encounter
CPT/HCPCS: 73060; 99283; 99284

== ENCOUNTER 2024-05-23 10:13 | Outpatient (RCR) | payer OTHER, SELFPAY | END 2024-06-27 15:54 | disposition home or self-care (01) | PROVIDERS: PCP Physician Assistant Medical; Visit Provider Orthopaedic Surgery Sports Medicine | DX: S42.255D Nondisplaced fracture of greater tuberosity of left humerus, subsequent encounter for fracture with routine healing (principal); M25.512 Pain in left shoulder; M25.612 Stiffness of left shoulder, not elsewhere classified; Z51.89 Encounter for other specified aftercare | CPT/HCPCS: 97161; 97530 ==